=== PATIENT | male | born 2005 | race African-American/Black ===

== ENCOUNTER 2025-10-11 16:04 | Emergency (ER) | payer SELFPAY ==
--- NOTE | ~2025-10-11 | XR_ITS ---
[id number] Indication: neck pain upon waking, LT SIDED, SINCE THIS AM Comparison: None Findings: The vertebral heights are intact. No fracture or subluxation. The disc heights are intact. Soft tissues unremarkable Impression: No acute abnormality. Reviewed, dictated and finalized at location P. EMAID Impression: No acute abnormality.
[2025-10-11 16:07] VITALS: BP 149/95; PULSE 63; RESP 18; TEMP 36.8; O2SAT 100
[2025-10-11 16:15] VITALS: BP 124/71; PULSE 68; RESP 14; TEMP 36.6; O2SAT 100
[2025-10-11] MEDS: KETOROLAC (*BKC) 60 MG/2 ML VIAL IM (17:53)
[2025-10-11 17:57] LABS: Add Urine Microscopic? YES; Appearance Urine Turbid (Clear); Glucose Urine UA Negative (Negative); Leukocyte Esterase Ur 1+ LEU/UL (Negative); Nitrate Urine Negative (Negative); Non Pathogenic Casts 0-2; Specific Grav Ur 1.018 (1.001-1.035)
--- NOTE | 2025-10-11 18:33 | ED.MALEGU ---
HPI - Male Genitourinary General Chief complaint: Urogenital-Male <Elsa Vides PA-C - Last Filed: 10/11/25 19:10> Stated complaint: neck pain <ABHINAV Lamas Last Filed: 10/11/25 19:10> Time Seen by Provider: 10/11/25 16:19 <Elsa Vides PA-C - Last Filed: 10/11/25 19:10> Source: patient <ABHINAV Lamas Last Filed: 10/11/25 19:10> Mode of arrival: ambulatory <ABHINAV Lamas Last Filed: 10/11/25 19:10> Limitations: no limitations <ABHINAV Lamas Last Filed: 10/11/25 19:10> History of Present Illness HPI Narrative: Patient is a 19-year-old male who presents the ED with report of left-sided neck pain. Patient reports he woke up this morning with pain throughout his left-sided neck. Worse with movement. Is unsure if he slept wrong. Has not taken anything for pain. Denies numbness or tingling in extremities. Patient would also like to be tested for STDs. Denies any symptoms, dysuria, hematuria, penile discharge, genital lesions. Denies known exposure to anything. Is sexually active <Elsa Vides PA-C - Last Filed: 10/11/25 19:10> Related Data Allergies/Adverse reactions: Allergies Allergy/AdvReac Type Severity Reaction Status Date / Time No Known Allergies Allergy Verified 10/11/25 16:05 <Elsa Vides PA-C - Last Filed: 10/11/25 19:10> Review of Systems Review of Systems: All systems reviewed & are unremarkable except as noted in HPI. <ABHINAV Lamas Last Filed: 10/11/25 19:10> All systems reviewed & are unremarkable except as noted in HPI and below <ABHINAV Lamas Last Filed: 10/11/25 19:10> Exam Narrative: GENERAL: Well appearing, well-nourished, non-toxic, in no acute distress. HEAD: Normocephalic, atraumatic. NECK: No significant midline spinal tenderness. Tenderness to palpation over left-sided paraspinal musculature. RESPIRATORY: Airway patent, respirations nonlabored. Clear to auscultation bilaterally, no rales, rhonchi, wheezing. CARDIOVASCULAR: Regular rate and rhythm MUSCULOSKELETAL: Moves all extremities. No gross deformities. SKIN: Warm, dry, normal color. NEURO: A&O X3. Speech clear. Cranial nerves II-XII grossly intact. Steady gait. No ataxic movements. PSYCHIATRIC: Appropriate mood and affect. Normal interaction. <ABHINAV Lamas Last Filed: 10/11/25 19:10> Course Vital Signs Vital signs: Vital Signs Temperature 36.8 C 10/11/25 16:07 Pulse Rate 63 10/11/25 16:07 Respiratory Rate 18 10/11/25 16:07 Blood Pressure 149/95 H 10/11/25 16:07 Pulse Oximetry 100 10/11/25 16:07 Oxygen Delivery Room Air 10/11/25 16:07 Temperature 36.6 C 10/11/25 16:15 Pulse Rate 68 10/11/25 16:15 Respiratory Rate 14 10/11/25 16:15 Blood Pressure 124/71 10/11/25 16:15 Pulse Oximetry 100 10/11/25 16:15 Oxygen Delivery Room Air 10/11/25 16:15 <ABHINAV Lamas Last Filed: 10/11/25 19:10> Vital Signs Temperature 36.8 C 10/11/25 16:07 Pulse Rate 63 10/11/25 16:07 Respiratory Rate 18 10/11/25 16:07 Blood Pressure 149/95 H 10/11/25 16:07 Pulse Oximetry 100 10/11/25 16:07 Oxygen Delivery Room Air 10/11/25 16:07 Temperature 36.6 C 10/11/25 16:15 Pulse Rate 68 10/11/25 16:15 Respiratory Rate 14 10/11/25 16:15 Blood Pressure 124/71 10/11/25 16:15 Pulse Oximetry 100 10/11/25 16:15 Oxygen Delivery Room Air 10/11/25 16:15 <Brenna Cedeño, STRIPPER LATEX - Last Filed: 10/11/25 19:22> [facility] Narrative Medical decision making narrative: X-ray of cervical spine without acute findings. Suspicious for cervical strain, musculoskeletal etiology. Discussed rice therapy, Tylenol/ibuprofen as needed for pain. UA with 1+ leuk esterase, 21-50 WBC. Will tx for acute UTI Trichomonas negative. Gonorrhea/chlamydia pending. Care signed out to Brenna Cedeño HEAD TURBINE OPERATOR at shift change pending STD results. <Elsa Vides PA-C - Last Filed: 10/11/25 19:10> X-ray of cervical spine without acute findings. Suspicious for cervical strain, musculoskeletal etiology. Discussed rice therapy, Tylenol/ibuprofen as needed for pain. UA with 1+ leuk esterase, 21-50 WBC. Will tx for acute UTI Trichomonas negative. Gonorrhea/chlamydia pending. Care signed out to Brenna Cedeño HEAD TURBINE OPERATOR at shift change pending STD results. Patient Education/Shared MDM: Results of lab work shared with patient. Patient strongly advised to follow-up with his PCP in the next 2-3 days to ensure he is healing. He will be discharged home with a prescription for Keflex and doxycycline. Strict return precautions provided. Patient verbalized understanding and is in agreement with plan. Vital signs stable at time of discharge. All questions answered. <Brenna Cedeño, MARCIE - Last Filed: 10/11/25 19:22> Differential Diagnosis Differential Diagnosis: Cervical strain, cervical fracture, gonorrhea, chlamydia, Trichomonas, UTI <Elsa Vides PA-C - Last Filed: 10/11/25 19:10> Medical Records I have reviewed the following patient records and this information was taken into consideration when formulating the assessment and plan.: previous labs, previous ER visits, previous hospitalizations and previous clinic visits <Elsa Vides PA-C - Last Filed: 10/11/25 19:10> Lab Data [facility] Lab Attestation statement: I personally reviewed the patient's lab results. <ABHINAV Lamas Last Filed: 10/11/25 19:10> Labs: Lab Results 10/11/25 Range/Units 17:32 Urine Color Yellow (Yellow) Urine Appearance Turbid H (Clear) Urine pH 7.5 (5.0-9.0) Ur Specific [place] 1.018 (1.001-1.035) Urine Protein Negative (Negative) mg/dL Urine Glucose (UA) Negative (Negative) mg/dL Urine Ketones Trace H (Negative) mg/dL Ur Blood (Man) Negative (Negative) Urine Nitrate Negative (Negative) Urine Bilirubin Negative (Negative) Urine Urobilinogen 1.0 (<2.0) mg/dL Leukocyte Esterase Rfl 1+ H (Negative) SHAHEED/UL Urine RBC 0-2 (0-2) /hpf Urine WBC 21-50 H (0-3) /hpf Ur Squamous Epith Cells None seen (Few) /hpf Urine Bacteria None seen /hpf Urine Casts 0-2 C. trachomatis (PCR) Detected A (NOT DETECTE) N. gonorrhoeae (PCR) Not detected (NOT DETECTE) T. vaginalis (PCR) Not detected (NOT DETECTE) <Elsa Vides PA-C - Last Filed: 10/11/25 19:10> Lab Results 10/11/25 Range/Units 17:32 Urine Color Yellow (Yellow) Urine Appearance Turbid H (Clear) Urine pH 7.5 (5.0-9.0) Ur Specific [place] 1.018 (1.001-1.035) Urine Protein Negative (Negative) mg/dL Urine Glucose (UA) Negative (Negative) mg/dL Urine Ketones Trace H (Negative) mg/dL Ur Blood (Man) Negative (Negative) Urine Nitrate Negative (Negative) Urine Bilirubin Negative (Negative) Urine Urobilinogen 1.0 (<2.0) mg/dL Leukocyte Esterase Rfl 1+ H (Negative) SHAHEED/UL Urine RBC 0-2 (0-2) /hpf Urine WBC 21-50 H (0-3) /hpf Ur Squamous Epith Cells None seen (Few) /hpf Urine Bacteria None seen /hpf Urine Casts 0-2 C. trachomatis (PCR) Detected A (NOT DETECTE) N. gonorrhoeae (PCR) Not detected (NOT DETECTE) T. vaginalis (PCR) Not detected (NOT DETECTE) <Brenna Cedeño APRN - Last Filed: 10/11/25 19:22> Imaging Data Attestation: I personally reviewed and interpreted this imaging study as follows: <Elsa Vides PA-C - Last Filed: 10/11/25 19:10> Radiologist's impression: ITS Impressions Cervical Spine X-Ray 10/11/25 17:51 Impression: No acute abnormality. <Elsa Vides PA-C - Last Filed: 10/11/25 19:10> ITS Impressions Cervical Spine X-Ray 10/11/25 17:51 Impression: No acute abnormality. <Brenna Cedeño APRN - Last Filed: 10/11/25 19:22> Discharge Plan Discharge Clinical Impression: Abnormal finding on urinalysis, Urinary tract infection, Chlamydia Cervical strain Qualifiers: Encounter type: initial encounter Qualified Code(s): S16.1XXA - Strain of muscle, fascia and tendon at neck level, initial encounter <ABHINAV Lamas Last Filed: 10/11/25 19:10> Patient Disposition: Home <Elsa Vides PA-C - Last Filed: 10/11/25 19:10> Condition: Stable <Elsa Vides PA-C - Last Filed: 10/11/25 19:10> Instructions: Antibiotic Form, Safe Sex Practices (ED), Urinary Tract Infection in Men (ED) <Elsa Vides PA-C - Last Filed: 10/11/25 19:10> Additional Instructions: Take Tylenol/ibuprofen as needed for further neck pain. Your urine was suspicious for infection. Take antibiotics as prescribed. <Elsa Vides PA-C - Last Filed: 10/11/25 19:10> Patient Language: Malaysian <ABHINAV Lamas Last Filed: 10/11/25 19:10> Prescriptions: New cephalexin 500 mg capsule 500 mg PO Q12H 7 Days Qty: 14 0RF doxycycline monohydrate 100 mg capsule 100 mg PO BID Qty: 14 0RF <ABHINAV Lamas Last Filed: 10/11/25 19:10> Follow-up/Referrals: PHYSICIAN,STAINED GLASS WINDOW DESIGNER [Primary Care Provider, Internal Medicine] Neymar Cohen MD [Physician, Family Practice] <Elsa Vides PA-C - Last Filed: 10/11/25 19:10> Stand Alone Forms: Work/School Release IP <Elsa Vides PA-C - Last Filed: 10/11/25 19:10> Time of Disposition: 19:21 <Elsa Vides PA-C - Last Filed: 10/11/25 19:10> 19:21 <Brenna Cedeño APRN - Last Filed: 10/11/25 19:22>
[2025-10-11 18:48] LABS: Trichomonas Vag PCR NOT DETECTED (NOT DETECTE)
[2025-10-11] MEDS: DOXYCYCLINE HYCLATE 100 MG TABLET PO (19:41)
[2025-10-11 19:44] VITALS: BP 116/69; PULSE 72; RESP 19; O2SAT 100
--- OUTSIDE RECORDS SUMMARY | 2025-10-11 20:53 | XMS_ITS | Clinical Summary ---
Author Organization [facility] Address [address] [place] [address] Care Team Providers Care Drying And Winding Supervisor Name Role Phone No, Physician Primary Care Provider [phone] Allergies No known active allergies Medications ondansetron ODT (ZOFRAN-ODT) 4 mg disintegrating tablet Take 1 tablet (4 mg total) by mouth every 8 (eight) hours as needed for nausea 20 tablet Active Social History Tobacco Use Types Packs/Day Years Used Date Smoking Tobacco: Every Day Cigarettes Tobacco Cessation:Ready to Q uit: Not Asked; Counseling Given: Not Answered AUDIT-C Answer Date Recorded Q1: How often do you have a drink containing alc ohol? Never 05/08/2025 Average Number of Drinks Not on file 025 Frequency of Binge Drinking Not on file 05/2025 Personal Safety Answer Date Recorded Have you ever been in or are you currently in a harmful physical or emotional relationship or is someone making you feel afraid or unsafe? Denies 05/08/2025 Sex and Gender Information Value Date Recorded Sex Assigned at Not on file Legal Sex Male 2:05 PM CDT Gender Identity Not on file Sexual Orientation Not on file Last Filed Vital Signs Vital Sign Reading Time Taken Comments Blood Pressure 147/92 05/08/2025 2:15 PM CDT Pulse 76 05/08/2025 2:12 PM CDT Temperature 36.8 C (98.2 F) 05/08/2025 2:12 PM CDT Respiratory Rate 18 05/08/2025 2:12 PM CDT Oxygen Saturation 99% 05/08/2025 2:12 PM CDT Inhaled Oxygen Concentration - - Weight 83.9 kg (185 lb) 05/08/2025 2:09 PM CDT Height 188 cm (6' 2) 05/08/2025 2:09 PM CDT Body Mass Index 23.75 05/08/2025 2:09 PM CDT Plan of Treatment Health Maintenance Due Date Last Done Comments Depression Screening 2003 Hepatitis C Screening 2003 HPV Vaccines (2 - Male 2-dos e series) 01/04/2016 07/06/2015 Meningococcal B Vaccine (1 o f 2 - Standard) 2019 Regular Well Visit/Exam 18-64 2021 Pneumococcal vaccine <65 (1 of 2 - PCV) 2022 03/13/2005, 06/14/2004, 04/11/2004, Additional history exists Influenza Vaccine (#1) 2025 11/18/2012 DTaP/Tdap/Td Vaccine (7 - Td or Tdap) 07/06/2025 07/06/2015, 08/16/2010, 03/13/2005, Additional history exists Varicella Vaccines Completed 08/16/2010, 12/19/2004 Hepatitis B Screening Completed 11/15/2021 , 04/11/2004, 02/12/2004, Additional history exists Meningococcal Vaccine Completed 11/15/2021, 015 Care Teams Drying And Winding Supervisor Relationship Specialty Start Date End Date No, Physician PCP - General 05/08/25
== END 2025-10-11 19:45 | disposition home or self-care (01) ==
PROVIDERS: Emergency Provider Physician Assistant
DX: S16.1XXA Strain of muscle, fascia and tendon at neck level, initial encounter (principal); N39.0 Urinary tract infection, site not specified; A56.2 Chlamydial infection of genitourinary tract, unspecified; X58.XXXA Exposure to other specified factors, initial encounter
CPT/HCPCS: 72040; 81001; 87086; 87491; 87591; 87661; 96372; 99283; A9270; J1885